=== PATIENT | female | born 1980 | race Asian ===

== ENCOUNTER 2018-02-17 10:27 | Emergency (ER) | payer BC ==
[~2018-02-17] VITALS: Ht 167.6 cm; Wt 51.3 kg
[2018-02-17 10:36] VITALS: Ht 167.6 cm; Wt 51.3 kg
[2018-02-17 11:28] LABS: BASOPHIL % 0.4 % (0-2); PLATELET COUNT 179 x10^3mcL (130-400); RED CELL DISTRIBUTION WIDTH 14.5 % (11.5-14.5)
[2018-02-17 11:50] LABS: CALCIUM 8.4 mg/dL (8.5-10.1); CARBON DIOXIDE 24.9 mmol/L (21-32); CHLORIDE SERUM 104 mmol/L (98-107); CREATININE SERUM 0.6 mg/dL (0.6-1.0); GFR1 > 60 mL/min; GLUCOSE SERUM 92 mg/dL (74-106); POTASSIUM SERUM 3.9 mmol/L (3.5-5.1); SODIUM SERUM 137 mmol/L (136-145)
[2018-02-17 11:54] LABS: ALKALINE PHOSPHATASE 35 U/L (46-116); ALT/SGPT 21 U/L (14-59); AST/SGOT 11 U/L (15-37); TOTAL PROTEIN, SERUM 8.1 g/dL (6.4-8.2)
[2018-02-17 12:49] VITALS: BP 106/71
== END 2018-02-17 12:49 | disposition home or self-care (01) ==
LOC: ED 10:27
PROVIDERS: Emergency Medicine
DX: K60.2 Anal fissure, unspecified (principal); K62.5 Hemorrhage of anus and rectum; M35.00 Sjogren syndrome, unspecified
CPT/HCPCS: 36415